=== PATIENT | female | born 1935 | race Caucasian/White ===

== ENCOUNTER 2017-12-18 13:49 | Emergency (ER) | payer MEDICAID, OTHER ==
[2017-12-18] MEDS ORDERED: IBUPROFEN 200 MG TAB PO ONE (14:34)
--- NOTE | 2017-12-18 14:34 | EDPHY ---
General Time Seen by Provider: 12/18/17 14:20 Narrative: CHIEF COMPLAINT: Left toe swelling and pain HISTORY OF PRESENT ILLNESS: Patient presents with complaints of left toe swelling and pain and redness. This initially started 2 weeks ago. She is not sure she injured it. She says over the past 2 weeks he has had increasing swelling, redness and pain. Now unbearable when she touches it. Difficulty walking due to pain. No fever. No pain in the foot, ankle or leg. No chest pain or shortness of breath. No history of gout. No other associated complaints or modifying factors. REVIEW OF SYSTEMS: Ten systems reviewed and are negative unless otherwise noted in the HPI PAST MEDICAL HISTORY: Previously diagnosed with hypertension, no medications PAST SURGICAL HISTORY: Denies any recent surgical history SOCIAL HISTORY: Nonsmoker. Lives independently. FAMILY HISTORY: Noncontributory EXAMINATION General Appearance: Alert, no distress Cardiovascular: Symmetric DP PT pulses 2+. Neurological: A&O, light sensory symmetric in both feet. Strength of the great toe symmetric. Skin: Warm and dry, no rash. There is erythema of the left 4th toe involving the distal phalanx and middle phalanx. There is a area of fluctuance consistent with paronychia or felon both on the medial and lateral plantar surfaces. No obvious foreign body Extremities: Significant swelling and tenderness to the left 4th toe. There is no tenderness of the midfoot, calcaneus, left calf or proximal fibula. Range of motion of the lower extremities symmetric. There is no evidence of DVT of lower extremities. Psychiatric: Mood and affect normal DIFFERENTIAL DIAGNOSES: Including but not limited to paronychia, felon, gout, osteomyelitis, fracture, cellulitis MDM: 2:25 p.m. Significant pain, redness and swelling to the left 4th toe with questionable previous injury. She has no evidence of cellulitis to the foot. No evidence of DVT. I have ordered x-ray of the toe at and will administer a block to the toe. 3:10 p.m. I have administered a digital block to the affected toe. X-ray as read by me reveals no obvious fracture. There may be a foreign body present. 3:45 p.m. X-ray read as small area of foreign body presence. I have performed incision and drainage of 2 areas of abscess on the toe with significant drainage. I did not locate any foreign body. The wound will be dressed and I will place her on antibiotics. We will provide postoperative shoe. I will refer to geophysics scientist for definitive care and further examination for the possibility of retained foreign body. We discussed ED precautions, antibiotics, pain medication. We discussed follow up with Podiatry in primary care physician on-call. She is comfortable this plan and discharged home stable condition. PROCEDURE: Incision and Drainage Consent: Verbal Location: Left 4th toe Complexity: Simple Anesthesia: Digital block Procedure description: After time-out and good anesthesia Expressed: 4 mL, purulent Wound care: Daily dressing changes Follow-up: Podiatry in 1-2 days PROCEDURE: Digital Block Indication: Abscess Consent: Verbal Location: Left 4th toe Anesthesia: Lidocaine 1% plain, 0.25% Marcaine plain, 5mL Description: Base of the toe was prepped. The above was infused without difficulty. Tolerated well. Good anesthesia. Complications: None SUPERVISION: This patient was independently evaluated without direct involvement of or examination by the attending physician. ED Precautions: Worsening pain. Erythema, edema, cyanosis, pallor, paresthesia or anesthesia. - Diagnostics Imaging Results: Imaging Impressions Toe X-Ray 12/18/17 14:34 Impression: 6 mm sliver of radiopaque foreign material along the plantar lateral aspect of the distal left fourth toe. - History Smoking Status: Never smoked - Objective Vital Signs: Initial Vital Signs Temperature (C) 99.0 F 12/18/17 14:10 Heart Rate 104 H 12/18/17 14:10 Respiratory Rate 16 12/18/17 14:10 Blood Pressure 116/69 12/18/17 14:10 O2 Sat (%) 96 12/18/17 14:10 O2 Delivery Mode Room Air Allergies/Adverse Reactions: Penicillins Allergy (Severe, Verified 12/18/17 14:10) Anaphylaxis Home Medications: Medication Instructions Recorded Doxycycline Hyclate 100 mg PO BID #20 tablet 12/18/17 Hydrocodone/APAP 5/325 [[place] 1 - 2 tab PO Q4H PRN #7 tab 12/18/17 5/325 (*)] Medications Given: Discontinued Medications Ibuprofen (Motrin) 400 mg PO EDNOW ONE Stop: 12/18/17 14:35 Last Admin: 12/18/17 14:42 Dose: 400 mg Departure - Departure Disposition: Home, Routine, Self-Care Clinical Impression: Paronychia of fourth toe of left foot Foreign body of toe of left foot Qualifiers: Encounter type: initial encounter Qualified Code(s): S90.455A - Superficial foreign body, left lesser toe(s), initial encounter Condition: Good Instructions: Paronychia (ED), Abscess (ED) Additional Instructions: 1. Daily wound care with daily dressing changes as needed 2. Antibiotics as prescribed to completion 3. Pain medication as prescribed as needed 4. Contact the on-call geophysics scientist as provided. I would like them to [facility] this week for re-evaluation of the wound and for possible retained foreign body 5. Contact the on-call primary care physician as provided 6. ED precautions for worsening redness or pain, swelling, fever Referrals: Brett Grant MD [Doctor of Podiatric Medicine] - As per Instructions Delmer Maier DO [Medical Doctor] - As per Instructions Prescriptions: Doxycycline Hyclate 100 mg PO BID #20 tablet Hydrocodone/APAP 5/325 [[place] 5/325 (*)] 1 - 2 tab PO Q4H PRN #7 tab PRN Reason: Pain, Moderate
[2017-12-18 16:18] VITALS: BP 110/73
== END 2017-12-18 16:20 | disposition home or self-care (01) ==
PROC: 0H9NXZZ Drainage of Left Foot Skin, External Approach (ICD-10-PCS; principal; 2017-12-18)
DX: L03.032 Cellulitis of left toe (principal); S90.455A Superficial foreign body, left lesser toe(s), initial encounter; X58.XXXA Exposure to other specified factors, initial encounter